=== PATIENT | female | born 1985 | race Two or more races ===

== ENCOUNTER → 2019-04-13 | Outpatient (REF) | payer BC ==
[2019-04-21 15:06] LABS: HPV LOW VOL RFLX Positive (Negative)
== END ==
LOC: M LAB LCGH 15:14
PROVIDERS: ATTEND Nurse Practitioner Family
DX: Z12.4 Encounter for screening for malignant neoplasm of cervix (principal)
CPT/HCPCS: 87624; G0123

== ENCOUNTER → 2024-11-12 | Outpatient (CLI) | payer BC ==
[~2024-11-12] MED LIST: METHACHOLINE KIT (6 VIAL.NEB PREMIX) INH ONE
== END ==
LOC: M CARPUL 07:32
PROVIDERS: ATTEND Physician Assistant
DX: R06.02 Shortness of breath (principal)